=== PATIENT | male | born 1990 ===

== ENCOUNTER 2017-02-21 09:54 | Emergency (ER) | payer OTHER ==
[2017-02-21 09:56] VITALS: BMI 21.4
[2017-02-21 11:39] LABS: RBC URINE 7 /hpf (0-3); URINE BACTERIA RARE (<OCC); URINE BILIRUBIN NEGATIVE (NEGATIVE); URINE BLOOD NEGATIVE (NEGATIVE); URINE COLOR Yellow (YELLOW); URINE GLUCOSE (UA) NORMAL (Normal); URINE KETONE NEGATIVE (NEGATIVE); URINE LEUKOCYTE ESTERASE 3+ Leu/uL (Negative); URINE PROTEIN NEGATIVE (NEGATIVE); URINE UROBILINOGEN NORMAL mg/dL (0.2-1.0); WBC URINE 493 /hpf (0-5)
[2017-02-21] MEDS ORDERED: cefTRIAXone (Rocephin) 250 mg Inj IM STA (11:41)
--- NOTE | 2017-02-21 12:29 | C.PDOC ---
History Of Present Illness Pt c/o dysuria and penile discharge. Time Seen by Provider: 02/21/17 10:55 Chief Complaint (Nursing): Male Genitourinary History Per: Patient Onset/Duration Of Symptoms: Days (about 1 month) Current Symptoms Are (Timing): Still Present Severity: Moderate Quality Of Discomfort: Burning Associated Symptoms: Urinary Symptoms Alleviating Factors: None Additional History Per: Prior Records Past Medical History Reviewed: Historical Data, Nursing Documentation, Vital Signs Vital Signs: Last Vital Signs Temp 98.1 F 02/21/17 09:57 Pulse 68 02/21/17 09:57 Resp 14 02/21/17 09:57 BP 123/83 02/21/17 09:57 Pulse Ox 100 02/21/17 09:57 - Medical History PMH: No Chronic Diseases Surgical History: No Surg Hx Family History: States: Unknown Family Hx - Social History Hx Alcohol Use: Yes Hx Substance Use: No - Immunization History Hx Tetanus Toxoid Vaccination: No Hx Influenza Vaccination: No Hx Pneumococcal Vaccination: No Review Of Systems Except As Marked, All Systems Reviewed And Found Negative. Constitutional: Negative for: Fever, Chills, Weakness Cardiovascular: Negative for: Chest Pain Gastrointestinal: Negative for: Vomiting, Abdominal Pain Genitourinary: Positive for: Dysuria, Penile Discharge. Negative for: Frequency , Scrotal Pain Musculoskeletal: Negative for: Neck Pain, Back Pain Skin: Negative for: Rash Neurological: Negative for: Weakness, Numbness, Seizures, Altered Mental Status Physical Exam - Physical Exam Appears: Non-toxic, No Acute Distress Skin: Normal Color, Warm, Dry, No Rash Head: Atraumatic, Normacephalic Eye(s): bilateral: PERRL, EOMI Neck: Normal ROM, Supple Cardiovascular: Rhythm Regular Respiratory: Normal Breath Sounds, No Accessory Muscle Use Gastrointestinal/Abdominal: Soft, No Tenderness Back: No CVA Tenderness Male Genital: No Testicular Tenderness, No Testicular Swelling, No Inguinal Tenderness, No Inguinal Swelling, No Scrotal Swelling, No Circumcised, Other ( milky penile discharge) Extremity: Normal ROM Neurological/Psych: Oriented x3, Normal Motor, Normal Sensation ED Course And Treatment O2 Sat by Pulse Oximetry: 100 Pulse Ox Interpretation: Normal Disposition Counseled Patient/Family Regarding: Studies Performed, Diagnosis, Need For Followup, Rx Given - Disposition Referrals: at [facility] [Outside] Disposition: HOME/ ROUTINE Disposition Time: 12:29 Condition: STABLE Additional Instructions: Practice safe sex (always use condoms). Inform your sexual contacts so they can get treated. Follow up in the clinic for further evaluation and treatment. Return to the ER if you develop scrotal pain, trouble urinating, abdominal pain , back pain, worsening of symptoms or if you have any other concerns. Instructions: Nonspecific Urethritis in Men (ED) Print Language: EMIRATI - Clinical Impression Clinical Impression: Urethritis
[2017-02-21 12:42] VITALS: BP 113/75; PULSE 71; RESP 16; TEMP 98.2; O2SAT 97
== END 2017-02-21 12:42 | disposition home or self-care (01) ==
LOC: C.ER 09:54
DX: N34.2 Other urethritis (principal); B96.89 Other specified bacterial agents as the cause of diseases classified elsewhere
CPT/HCPCS: 81001; 87086; 87491; 87591; 96372; 99284; J0696